=== PATIENT | male | born 1995 | race Caucasian/White ===

== ENCOUNTER → 2020-01-11 | Emergency (ER) | payer SELFPAY ==
[~2020-01-11] VITALS: Ht 182.9 cm; Wt 79.4 kg
[~2020-01-11] MED LIST: Lidocaine 1% MPF 10mg/ml 5ml INJ ONE; VIBRAMYCIN100 MG ORAL
[2020-01-11 17:30] VITALS: BP 128/82
--- NOTE | 2020-01-11 17:30 | NUR ---
ED Nurse Note: Pt walked in due to penile white/green discharge and itching x 1 week. Last sexual contact 2 months ago. Placed on RME, VSS, on RA, afebrile on triage.
[2020-01-11 17:46] LABS: APPEARANCE,URINE CLEAR; BILIRUBIN, URINE NEGATIVE (NEGATIVE); COLOR,URINE PALE YELLOW; GLUCOSE, URINE (UA) NEGATIVE (NEGATIVE); KETONES,URINE NEGATIVE (NEGATIVE); LEUKOCYTE ESTERASE ,URINE NEGATIVE (NEGATIVE); NITRITE,URINE NEGATIVE (NEGATIVE); PH,URINE 7 (4.5-8.0); PROTEIN,URINE NEGATIVE (NEGATIVE); UROBILINOGEN,URINE NORMAL MG/DL (0.0-1.0)
--- NOTE | 2020-01-11 17:55 | NUR ---
ER DISCHARGE NOTE: Pt is cleared to be discharged per ERMD, pt is aox4, on room air, with stable vital signs. pt was given dc and prescription instructions, pt was able to verbalize understanding, pt id band removed. pt is able to ambulate with steady gait. pt took all belongings.
--- NOTE | 2020-01-11 18:01 | Emergency Room Report ---
History of Present Illness General Chief Complaint: Male Urogenital Problems Source: Patient Present Illness HPI Patient is a 24-year-old male presented for increased urethral discharge. Patient reports having a greenish clear discharge. Onset within the past 1 week. Denies any intercourse within the last 3 to 4 weeks. Denies any vomiting. Denies any testicular pain or swelling. Denies any hematuria. Denies any burning with urination. Allergies: Coded Allergies: No Known Allergies (Unverified , 01/11/20) COVID-19 Screening Contact w/high risk pt: No Recent Travel to affected area: No Experienced COVID-19 symptoms?: No Patient History Reviewed Nursing Documentation: PMH: Agreed; PSxH: Agreed Nursing Documentation-PMH Past Medical History: No Stated History Review of Systems All Other Systems: negative except mentioned in HPI Physical Exam Vital Signs Date Time Temp Pulse Resp B/P (MAP) Pulse Ox O2 Delivery O2 Flow Rate FiO2 01/11/20 17:15 98.2 81 16 128/82 (97) 97 Room Air General Appearance: well appearing, no apparent distress, alert, GCS 15 Head: normocephalic, atraumatic ENT: hearing grossly normal, normal voice Neck: full range of motion, supple Respiratory: lungs clear, no respiratory distress, speaking full sentences Cardiovascular #1: normal peripheral pulses, no edema Gastrointestinal: normal bowel sounds, non tender, soft Genitourinary: other - Circumcised male without any external skin rash or ulcers. Musculoskeletal: no calf tenderness Neurologic: alert, motor strength/tone normal, advertising copywriter III-XII nml as tested, oriented x3, normal gait Psychiatric: mood/affect normal Skin: no rash Medical Decision Making Diagnostic Impression: Primary Impression: Urethritis ER Course Patient presented for penile discharge. Differential diagnosis includes not limited to urethritis, balanitis, herpes, urinary tract infection among others. Patient has a benign exam and does not appear to require any imaging or laboratory testing at this time. Patient's urine does not appear to have any evidence of infection. Patient was given empiric treatment for urethritis. Patient was advised outpatient sexually transmitted infection testing. He was advised to return if worse. Patient is advised to return if any worsening condition or if any changes in status that are concerning. This report is dictated with [employer] clerk software which may occasionally lead to discrepancies related to use of this software. Last Vital Signs Date Time Temp Pulse Resp B/P (MAP) Pulse Ox O2 Delivery O2 Flow Rate FiO2 01/11/20 17:15 98.2 81 16 128/82 (97) 97 Room Air Status: improved Disposition: HOME, SELF-CARE Condition: Stable Scripts Doxycycline Hyclate* (VIBRAMYCIN*) 100 Mg Capsule 100 MG ORAL EVERY 12 HOURS, #14 CAP 0 Refills Prov: Amado Garcia MD 01/11/20 Patient Instructions: Urethritis, Adult Additional Instructions: Follow up for STI testing. Return for fever, worsening pain, vomiting or other concerns. Stay out of sunlight as antibiotic may cause a rash. Amado Garcia MD Jan 11, 2020 18:01
== END | disposition home or self-care (01) ==
LOC: EMR 17:54
DX: N34.2 Other urethritis (principal)
CPT/HCPCS: 81003; 96372; 96374; 99284; J0696